=== PATIENT | female | born 1975 | race Two or more races ===

== ENCOUNTER 2019-04-27 09:54 | Outpatient (CLI) | payer OTHER | END 2019-04-27 10:05 | disposition home or self-care (01) | LOC: SONOGRAMA 09:54 | DX: N63.10 Unspecified lump in the right breast, unspecified quadrant (principal); N63.20 Unspecified lump in the left breast, unspecified quadrant ==

== ENCOUNTER 2021-07-01 10:57 | Outpatient (CLI) | payer OTHER | END 2021-07-01 11:06 | disposition home or self-care (01) | LOC: MAMO-SONO 10:57 | DX: Z12.31 Encounter for screening mammogram for malignant neoplasm of breast (principal); N60.11 Diffuse cystic mastopathy of right breast; N60.12 Diffuse cystic mastopathy of left breast ==